=== PATIENT | female | born 1965 | race Caucasian/White ===

== ENCOUNTER 2024-01-15 18:52 | Emergency (ER) | payer MEDICARE, OTHER | END 2024-01-15 21:43 | disposition left against medical advice (07) | LOC: JP.ED 18:52 | DX: M79.7 Fibromyalgia (principal); Z79.84 Long term (current) use of oral hypoglycemic drugs; Z79.899 Other long term (current) drug therapy; Z88.5 Allergy status to narcotic agent; Z88.8 Allergy status to other drugs, medicaments and biological substances; Z91.048 Other nonmedicinal substance allergy status | CPT/HCPCS: 99283 ==